=== PATIENT | female | born 1975 | race Caucasian/White ===

== ENCOUNTER 2016-03-25 22:43 | Emergency (ER) | payer MEDICAID ==
[~2016-03-25] VITALS: Ht 165.1 cm; Wt 58.1 kg
[2016-03-25 22:47] VITALS: BP 121/92
--- NOTE | 2016-03-25 22:53 | NUR ---
Patient ambulated to bed 02.
--- NOTE | 2016-03-25 22:54 | NUR ---
Dr. Wood evaluating patient at bedside.
--- NOTE | 2016-03-25 22:55 | NUR ---
40/F BIB FAMILY C/O RIGHT SHOULDERAND NECK PAIN x 2 DAYS AGO. PT DENIES INJURY OR TRAUMA. NO S/S OF RESP DISTRESS NOTED AT THIS MOMENT. ER MD AT BED SIDE.
[2016-03-25] MEDS ORDERED: HYDROcodone/APAP 10/325 MG 1 TAB TAB PO ONE (23:00)
[2016-03-25] MEDS ORDERED: METHOCARBAMOL 500 MG TAB PO SCH (23:00)
[2016-03-25] MEDS ORDERED: LORazepam 1 MG TAB PO ONE (23:55)
[2016-03-26 00:20] VITALS: BP 115/72
--- NOTE | 2016-03-26 00:20 | NUR ---
Patient discharged with v/s stable. Written and verbal after care instructions given and explained. Patient alert, oriented and verbalized understanding of instructions. Ambulatory with steady gait. All questions addressed prior to discharge. ID band removed. Patient advised to follow up with PMD. Rx of ROBAXIN AND NORCO given. Patient educated on indication of medication including possible reaction and side effects. Opportunity to ask questions provided and answered.
== END 2016-03-26 00:20 | disposition home or self-care (01) ==
LOC: MED 22:43
DX: M54.12 Radiculopathy, cervical region (principal); M25.511 Pain in right shoulder; F17.200 Nicotine dependence, unspecified, uncomplicated; Z88.0 Allergy status to penicillin; Z88.1 Allergy status to other antibiotic agents; Z88.5 Allergy status to narcotic agent; Z88.6 Allergy status to analgesic agent; Z90.89 Acquired absence of other organs

== ENCOUNTER 2016-04-03 15:33 | Emergency (ER) | payer MEDICAID ==
[~2016-04-03] VITALS: Ht 165.1 cm; Wt 58.1 kg
[2016-04-03 16:00] VITALS: BP 126/96
--- NOTE | 2016-04-03 16:07 | NUR ---
Patient ambulated to bed 08.
--- NOTE | 2016-04-03 16:15 | NUR ---
PT PRESENTS TO ER W/C/O RIGHT ARM PAIN X1 WEEK. PT DENIES ANY FALL OR TRAUMA. HX ASTHMA; DENIES N/V/D; SKIN IS PINK/WARM/DRY; AAOX4 WITH EVEN AND STEADY GAIT; LUNGS CLEAR BL; HR EVEN AND REGULAR; PT DENIES ANY FEVER, CP, SOB, OR COUGH AT THIS TIME; PATIENT STATES PAIN OF 9/10 AT THIS TIME; VSS; PATIENT POSITIONED FOR COMFORT; HOB ELEVATED; BEDRAILS UP X2; BED DOWN. ER MD MADE AWARE OF PT STATUS.
--- NOTE | 2016-04-03 16:24 | NUR ---
XRAY at bedside.
[2016-04-03] MEDS ORDERED: fentaNYL 0.05 MG/ML VIAL IM ONE (16:55)
[2016-04-03] MEDS ORDERED: traMADol 50 MG TAB PO ONE (17:45)
[2016-04-03 18:15] VITALS: BP 128/84
== END 2016-04-03 18:15 | disposition home or self-care (01) ==
LOC: MED 15:33
DX: M75.101 Unspecified rotator cuff tear or rupture of right shoulder, not specified as traumatic (principal); M77.9 Enthesopathy, unspecified; R03.0 Elevated blood-pressure reading, without diagnosis of hypertension; J45.909 Unspecified asthma, uncomplicated; Z88.0 Allergy status to penicillin; Z88.1 Allergy status to other antibiotic agents; Z88.5 Allergy status to narcotic agent
CPT/HCPCS: 29105; 73080; 96372; 99284; J3010; Q0092